=== PATIENT | male | born 1955 | race Caucasian/White ===

== ENCOUNTER 2025-01-17 20:06 | Emergency (ER) | payer MEDICARE ==
[~2025-01-17] VITALS: Ht 165.1 cm; Wt 70.5 kg
[2025-01-17 20:22] VITALS: TEMP 98
[2025-01-17] MEDS: LIDOCAINE 1% 10 ML VIAL SQ ONE (22:31)
[2025-01-17] MEDS: PERTUSS(ACELL),DIPH,TET/PF 0.5 ML SYRINGE [ADULT] IM. ONE (22:57)
[2025-01-17] MEDS ORDERED: CEPH-558 PO (23:43)
[2025-01-18 00:03] VITALS: BP 132/62; PULSE 72; RESP 16; O2SAT 99
[2025-01-18] MEDS: CEPHALEXIN MONOHYDRATE 500 MG CAPSULE PO ONE (00:03)
== END 2025-01-18 00:30 | disposition home or self-care (01) ==
LOC: EMS 20:06
DX: S41.112A Laceration without foreign body of left upper arm, initial encounter (principal); Z88.8 Allergy status to other drugs, medicaments and biological substances; V89.9XXA Person injured in unspecified vehicle accident, initial encounter; Y93.89 Activity, other specified; Y92.89 Other specified places as the place of occurrence of the external cause; Y99.8 Other external cause status
CPT/HCPCS: 99283; 90715; 90471; 12002; J3490

== ENCOUNTER 2025-02-03 19:53 | Emergency (ER) | payer MEDICARE ==
[~2025-02-03] VITALS: Ht 165.1 cm; Wt 79.1 kg
[~2025-02-03 19:53] MED LIST: CEPH-558 PO
[2025-02-03 20:07] VITALS: BP 120/54; PULSE 66; RESP 16; TEMP 97.8; O2SAT 96
== END 2025-02-04 03:20 | disposition home or self-care (01) ==
LOC: EMS 19:53
DX: S41.112D Laceration without foreign body of left upper arm, subsequent encounter (principal); X58.XXXD Exposure to other specified factors, subsequent encounter
CPT/HCPCS: 99281; Z7502